=== PATIENT | male | born 1960 | race Caucasian/White ===

== ENCOUNTER 2018-02-24 06:43 | Emergency (ER) | payer OTHER ==
[2018-02-24] MEDS ORDERED: LISI-362 PO (06:52)
[2018-02-24] MEDS ORDERED: DIPHTH/TETANUS/ACEL. PERTUSSIS IM ONLY ONE (07:50)
--- NOTE | 2018-02-24 07:55 | ER Report ---
History and Physical Time Seen By MD: 06:45 Hx. of Stated Complaint: DOG BITE TO RIGHT LOWER LIP HPI/ROS 57 y/o otherwise healthy male presents to the ED after being bitten by his dog just prior to arrival. Dog is UTD on shots and is in the patient's custody. Bite was unprovoked. Patient complains of laceration and injury to right lower lip and face. No other injuries. Remainder of the 14 system rev: Yes Allergies: Coded Allergies: No Known Drug Allergies (Unverified , 02/24/18) Home Meds Active Scripts Amoxicillin/Pot Clav 875-125 Mg Tab (AUGMENTIN 875-125 TABLET) 1 Each Tablet, 1 TAB PO Q12H for 5 Days, TAB Prov:SANDRA CHEATHAM MD 02/24/18 Reported Medications Lisinopril (LISINOPRIL) 10 Mg Tablet, 10 MG PO QDAY, TAB 02/24/18 Reviewed Nurses Notes: Yes Hx Smoking: No Smoking Status: Never Smoker Hx Substance Use Disorder: No Hx Alcohol Use: No Family History of: HTN Constitutional Vital Sign - Last 24 Hours 02/24/18 02/24/18 06:47 09:26 Temp 97.2 Pulse 65 62 Resp 18 B/P (MAP) 148/103 147/95 (112) Pulse Ox 96 98 O2 Delivery Room Air Room Air Physical Exam General Appearance: The patient is alert, has no immediate need for airway protection and no current signs of toxicity. Eyes: Pupils equal and round no injection. Respiratory: Chest is non tender, lungs are clear to auscultation. Cardiac: regular rate and rhythm Extremities have full range of motion and are non tender. Skin: There is a 3x3 cm avulsion to the right lower lip with extension into 2 separate areas across the right lower colleen border DIFFERENTIAL DIAGNOSIS: After history and physical exam differential diagnosis was considered for deep space injury, n/v injury, infection from bite, need for rabies series Medical Decision Making ED Course/Re-evaluation ED Course This is a 57-year-old otherwise healthy male who presented to the emergency department approximately one hour after his dog bit him in the right lower face. Given the extensive nature of the injury with involvement of 2 separate areas of the vermilion border, I contacted Dr. Jace Bravo a plastic surgeon in [place]. I was able to send Dr. Bravo pictures of the injury. We formulated a plan to close the lower areas of the lip in order to align the vermilion border, and leave the remainder of the avulsion injury open. I performed a mental nerve block and closed the 2 separate parts of the lacerated vermilion border (see procedure note). The patient tolerated the procedure well. He was placed on Augmentin for 5 days. He will follow-up with Dr. Bravo next week to discuss definitive care. Procedure Procedure: Laceration repair. Verbal consent was obtained from the patient. The 2x2 cm laceration on the right lower lip was anesthetized with 2% lidocaine using a mental nerve block. The wound was irrigated, draped and explored to its base with a gloved finger. There were no deep structures involved. No tendon injury was identified. The wound was repaired with 5, 5-0 interrupted prolene sutures. The wound repair was complicated, and involved 2 separate areas of the colleen border. The procedure was performed by myself. Decision to Disposition Date: Feb 24, 2018 Decision to Disposition Time: 09:19 Depart Departure Latest Vital Signs Vital Signs Date Time Temp Pulse Resp B/P (MAP) Pulse Ox O2 Delivery O2 Flow Rate FiO2 02/24/18 09:26 62 147/95 (112) 98 Room Air 02/24/18 06:47 97.2 18 Impression: Primary Impression: Dog bite Additional Impression: Laceration Condition: Improved Disposition: HOME OR SELF-CARE New Scripts Amoxicillin/Pot Clav 875-125 Mg Tab (AUGMENTIN 875-125 TABLET) 1 Each Tablet 1 TAB PO Q12H for 5 Days, TAB Prov: SANDRA CHEATHAM MD 02/24/18 Patient Instructions: Laceration (ED) Additional Instructions: Irrigate open area three times a day with 20 ml of 50/50 peroxide/water mix. Follow up with Dr. Jace Bravo next week. Call his office Monday morning at to make an appointment. You will need your sutures removed in 5 days. Problem Qualifiers Primary Impression: Dog bite Encounter type: initial encounter Qualified Codes: W54.0XXA - Bitten by dog , initial encounter SANDRA CHEATHAM MD Feb 24, 2018 07:54
[2018-02-24] MEDS ORDERED: AMOX-559 PO (09:22)
[2018-02-24 09:26] VITALS: BP 147/95
== END 2018-02-24 09:30 | disposition home or self-care (01) ==
LOC: ER 06:54
DX: S01.511A Laceration without foreign body of lip, initial encounter (principal); W54.0XXA Bitten by dog, initial encounter
CPT/HCPCS: 90471; 90715; 99283